=== PATIENT | female | born 1985 | race Caucasian/White ===

== ENCOUNTER 2019-10-31 14:09 | Outpatient (CLI) | payer MEDICARE, MEDICAID ==
[2019-10-31] MEDS ORDERED: ALBU8.5H8 INH (14:45)
[2019-10-31] MEDS ORDERED: LIRA0.6P INJ (14:45)
[2019-10-31] MEDS ORDERED: FLUT1AER INH (14:45)
[2019-10-31] MEDS ORDERED: LISI1TAB20 PO (14:45)
== END 2019-10-31 23:59 | disposition home or self-care (01) ==
LOC: STAR 14:09
PROVIDERS: ATTEND Internal Medicine Geriatric Medicine
DX: Z01.818 Encounter for other preprocedural examination (principal); K62.5 Hemorrhage of anus and rectum; R19.7 Diarrhea, unspecified
CPT/HCPCS: 93005

== ENCOUNTER 2019-11-07 10:04 | Day surgery (SDC) | payer MEDICARE, MEDICAID ==
[~2019-11-07] VITALS: Ht 167.6 cm; Wt 165.4 kg
[~2019-11-07 10:04] MED LIST: ALBU8.5H8 INH; FLUT1AER INH; LIRA0.6P INJ; LISI1TAB20 PO
[2019-11-07] MEDS ORDERED: LACTATED RINGERS 1,000 ML IV SCH (10:38)
[2019-11-07 10:39] VITALS: BP 138/86
[2019-11-07] MEDS ORDERED: CHLORHEXIDINE 15 ML UDC ONE (10:43)
[2019-11-07] MEDS ORDERED: CHLORHEXIDINE 15 ML UDC MM ONE (11:00)
[2019-11-07 11:03] LABS: HCG UR SG 1.021 (1.003-1.030)
[2019-11-07] MEDS ORDERED: FENTANYL PF 100 MCG/2ML ONE ×2 (12:12→12:13)
[2019-11-07] MEDS ORDERED: PROPOFOL 10 MG/ML, 20ML ONE (12:12)
[2019-11-07] MEDS ORDERED: MIDAZOLAM 1 MG/ML, 2ML ONE (12:13)
[2019-11-07] MEDS ORDERED: FENTANYL PF 100 MCG/2ML IV PRN (12:30)
[2019-11-07] MEDS ORDERED: ONDANSETRON 2MG/ML, 2ML IVPush PRN (12:30)
[2019-11-07] MEDS ORDERED: LABETALOL 5MG/ML, 20ML IV PRN (12:30)
[2019-11-07] MEDS ORDERED: OXYcodone 5 MG/5 ML ORAL.SOL UDC PO PRN (12:30)
[2019-11-07] MEDS ORDERED: MEPERIDINE/PF 25MG/0.5ML IVPush PRN (12:30)
== END 2019-11-07 14:06 | disposition home or self-care (01) ==
LOC: OUT 10:04
PROVIDERS: ATTEND Internal Medicine Geriatric Medicine
DX: R19.7 Diarrhea, unspecified (principal); Z11.59 Encounter for screening for other viral diseases; K62.5 Hemorrhage of anus and rectum; I10 Essential (primary) hypertension; E11.9 Type 2 diabetes mellitus without complications; J45.909 Unspecified asthma, uncomplicated; E66.01 Morbid (severe) obesity due to excess calories; Z79.84 Long term (current) use of oral hypoglycemic drugs; Z88.8 Allergy status to other drugs, medicaments and biological substances
CPT/HCPCS: 36415; 45380; 81025; 82962; 87635; 88305; J2250; J2704; J3010; J7120